=== PATIENT | female | born 1950 | race Caucasian/White ===

== ENCOUNTER 2020-11-03 16:33 | Outpatient (CLI) | payer MEDICARE, OTHER, SELFPAY ==
--- NOTE | ~2020-11-03 | MM_ITS ---
EXAMINATION: MM screening caden BI w egoff HISTORY: Screening mammogram TECHNIQUE: Craniocaudal and mediolateral oblique 3-D tomosynthesis images were obtained and synthetic 2-D images were generated. CAD analysis was submitted and interpreted. COMPARISON: 10/16/2019, 04/02/2018, 03/18/2017 bilateral digital screening mammogram examinations BREAST PARENCHYMAL COMPOSITION: There are scattered areas of fibroglandular density. FINDINGS: There is no evidence of suspicious mass, calcification, or architectural distortion to sugg est malignancy in either breast. There has been no suspicious interval change. IMPRESSION: 1. No mammographic evidence of malignancy. 2. Recommend routine screening mammography in one year. BI-RADS Category 1: Negative Reviewed, dictated and finalized at location B. [employer]
== END 2020-11-03 16:34 | disposition home or self-care (01) ==
PROVIDERS: PCP Family Medicine; Visit Provider Nurse Practitioner
DX: Z12.31 Encounter for screening mammogram for malignant neoplasm of breast (principal)
CPT/HCPCS: 77063; 77067

== ENCOUNTER 2021-03-16 09:18 | Outpatient (CLI) | payer MEDICARE, SELFPAY ==
--- NOTE | ~2021-03-16 | XR_ITS ---
XR knee RT 3V 03/16/2021 09:34 Indication: Right knee pain Procedure: 3 views right knee Comparison: 09/30/2008 Findings: There is moderate-severe tricompartment osteoarthritis of the right knee which has progress ed since prior examination. No acute fracture or traumatic malalignment. No significant joint effusio n. There is chondrocalcinosis. Impression: 1: Progression of moderate-severe tricompartment osteoarthritis of the right knee. 2: Chondrocalcinosis. Reviewed, dictated and finalized at location B. Impression: 1: Progression of moderate-severe tricompartment osteoarthritis of the right kn ee. 2: Chondrocalcinosis.
--- NOTE | ~2021-03-16 | XR_ITS ---
EXAMINATION: XR hip RT min 2V DATE: 03/16/2021 09:34 INDICATION: Right hip pain. TECHNIQUE: 2 views of right hip were obtained. COMPARISON: CT abdomen and pelvis 09/12/2019 FINDINGS: Bone alignment is normal. No fracture. There is moderate osteoarthritis of right hip. Ostei tis pubis is noted. IMPRESSION: 1. Moderate right hip osteoarthritis. Reviewed, dictated and finalized at location A.
== END 2021-03-16 09:19 | disposition home or self-care (01) ==
LOC: ANHIMG 09:21
PROVIDERS: PCP Family Medicine; Visit Provider Physician Assistant
DX: M25.559 Pain in unspecified hip (principal); M25.569 Pain in unspecified knee; M16.11 Unilateral primary osteoarthritis, right hip; M17.11 Unilateral primary osteoarthritis, right knee; M11.261 Other chondrocalcinosis, right knee
CPT/HCPCS: 73502; 73562

== ENCOUNTER 2021-07-07 10:24 | Outpatient (CLI) | payer MEDICARE, SELFPAY | END 2021-07-07 10:25 | disposition home or self-care (01) | LOC: ANHLAB 10:28 | PROVIDERS: PCP Family Medicine; Visit Provider Nurse Practitioner | DX: E55.9 Vitamin D deficiency, unspecified (principal) | CPT/HCPCS: 36415; 82306 ==

== ENCOUNTER 2022-01-03 19:13 | Emergency (ER) | payer MEDICARE, OTHER, SELFPAY ==
--- NOTE | ~2022-01-03 | XR_ITS ---
EXAMINATION: XR lumbar spine min 4V DATE: 01/03/2022 21:51 INDICATION: Right-sided back pain post twisting injury in bed this morning TECHNIQUE: Anteroposterior, lateral, and bilateral oblique views of the lumbar spine, and cone-down l ateral view of the lumbosacral junction were obtained. COMPARISON: CT dated 09/08/2019 FINDINGS: 5 mm anterolisthesis L4 on L5. L1 compression fracture with 20% anterior vertebral body height loss a nd prominent superior endplate Schmorl's node unchanged since prior CT. Remaining vertebral body heig hts are normal. Moderate disc height loss at L5-S1 and T9-T10 through T11-T12 and mild disc height lo ss at T12-L1, L1-L2 and L4-L5. Severe bilateral facet osteoarthritis at L4-L5. No pars interarticular is defects. Additional mild to moderate multilevel lumbar facet osteoarthritis. Mild bilateral sacroi liac osteoarthritis. Cholecystectomy clips in right upper quadrant. Metallic coils in the epigastric region which may be related to prior hernia repair. IMPRESSION: 1. Chronic mild L1 compression fracture. No evident acute osseous abnormality. 2. Moderate lower thoracic and mild to moderate lumbar spondylosis including chronic grade 1 anteroli sthesis L4 on L5. Reviewed, dictated and finalized at location A. TER APPRENTICE IMPRESSION: 1. Chronic mild L1 compression fracture. No evident acute osseous abnormality. 2. Moderate lower thoracic and mild to moderate lumbar spondylosis including ch ronic grade 1 anterolisthesis L4 on L5.
[2022-01-03 19:17] VITALS: BP 149/80; PULSE 90; RESP 16; TEMP 36; O2SAT 99
--- NOTE | 2022-01-03 21:29 | ED.BACK ---
HPI - Back Pain/Injury General Chief Complaint: Back Pain/Injury Stated Complaint: back pain Time Seen by Provider: 01/03/22 21:19 Source: RN notes reviewed History of Present Illness HPI Narrative: Patient presents emergency department from home for back pain. Patient states symptoms began when she got out of bed and twisted this morning pain is located in the right lower back and radiates in the right buttocks and down the right leg she denies any direct trauma or injury. Denies any numbness or tingling in the extremity denies any bowel or bladder incontinence. Denies any fevers or chills chest pain shortness of breath or abdominal pain. States she took Tylenol this morning with last dose at 1130 Related Data Home Medications Medication Instructions Recorded Confirmed raloxifene 60 mg tablet 60 mg PO DAILY 09/26/19 03/16/21 calcium polycarbophil 625 mg tablet 1,250 mg PO DAILY 10/14/19 03/16/21 cholecalciferol (vitamin D3) 25 1,000 unit PO DAILY 10/14/19 03/16/21 mcg (1,000 unit) capsule ferrous sulfate 27 mg iron tablet 65 mg PO DAILY tablet 10/14/19 03/16/21 mecobalamin (vitamin B12) 1,000 1,000 mcg SUBLINGUAL DAILY 10/14/19 03/16/21 mcg disintegrating tablet,sublingual Allergies Allergy/AdvReac Type Severity Reaction Status Date / Time iodine Allergy Unknown Swelling Verified 01/03/22 19:20 nut - unspecified Allergy Unknown Swelling Verified 01/03/22 19:20 shellfish derived Allergy Unknown Swelling Verified 01/03/22 19:20 Review of Systems Review of Systems: Gen.: Denies fevers or chills ENT: Denies congestion Respiratory: Denies shortness of breath or cough CV: Denies chest pain or palpitations GI: Denies abdominal pain nausea, emesis or diarrhea denies incontinence Musculoskeletal: See HPI Neuro: Denies numbness, tingling, weakness or focal weakness Skin: Denies rash Except as documented, all other systems reviewed and negative PMF Past Medical History Medical History (Updated 01/03/22 @ 22:58 by Thomas Rock DO) Depression Esophageal web Gastroesophageal reflux disease Head injury Recurrent major depressive disorder, in partial remission Vitamin B 12 deficiency Surgical History Surgical History H/O colonoscopy History of breast biopsy Hx of tonsillectomy Family History Family History Mother Family history of Alzheimer's disease Other Diabetes mellitus Family history of coronary artery disease Family history of malignant neoplasm Family history of malignant neoplasm of breast in first degree relative Hypertension Social History Social History Smoking status: Never smoker Second hand tobacco smoke exposure: No Alcohol intake: current Exam Narrative: APPEARANCE: No acute distress, nontoxic, resting in bed Eyes: EOMI HEENT: Normocephalic, atraumatic, CV: Regular rate and rhythm without murmur RESPIRATORY: No respiratory distress. Clear to auscultation bilaterally. Abdomen: Soft and nontender, no rebound or guarding MUSCULOSKELETAl: Moves all extremities, no clubbing cyanosis or edema Back: No midline lumbar tenderness to palpation or step-off, tender to palpation over right paravertebral muscles L3-5 , pain increased with forward flexion NEURO: Awake and alert. Following commands, speech normal, no focal deficits, muscle strength 5 out of 5 bilateral lower extremities, bilateral patellar reflex 2+ SKIN:: Warm, dry. Normal Color no rash or lesions Course Course Emergency Course: Patient states pain is improved with medication Discussed with patient results of workup and diagnosis. Discussed need for follow-up with primary care, proper use of medication, and reasons to return to the emergency department. Patient understands and agrees to current treatment plan Vital Signs Vital signs:
[2022-01-03] MEDS: HYDROcodone/acetaminophen (*CRX) 5-325 MG TABLET 1 TAB PO (21:57)
== END 2022-01-03 23:06 | disposition home or self-care (01) ==
PROVIDERS: Emergency Provider Emergency Medicine; PCP Family Medicine
DX: M54.50 Low back pain, unspecified (principal); K21.9 Gastro-esophageal reflux disease without esophagitis; E53.8 Deficiency of other specified B group vitamins; M47.816 Spondylosis without myelopathy or radiculopathy, lumbar region
CPT/HCPCS: 72110; 99283; A9270

== ENCOUNTER → 2022-02-07 09:59 | Outpatient (CLI) | payer MEDICARE, OTHER, SELFPAY ==
--- NOTE | ~2022-02-07 | MM_ITS ---
EXAMINATION: MM screening caden BI w geoff HISTORY: Screening mammogram TECHNIQUE: Craniocaudal and mediolateral oblique 3-D tomosynthesis images were obtained and synthetic 2-D images were generated. CAD analysis was submitted and interpreted. COMPARISON: 11/03/2020, 10/16/2019, 04/02/2018 bilateral screening mammogram examinations BREAST PARENCHYMAL COMPOSITION: There are scattered areas of fibroglandular density. FINDINGS: There is no evidence of suspicious mass, calcification, or architectural distortion to sugg est malignancy in either breast. There has been no suspicious interval change. IMPRESSION: 1. No mammographic evidence of malignancy. 2. Recommend routine screening mammography in one year. BI-RADS Category 1: Negative Reviewed, dictated and finalized at location A.
--- NOTE | ~2022-02-07 | DEXA_ITS ---
Bone Density Report Name: RAMONITA CUNHA Age: 71 Sex: Female Ethnicity: White Date of : 1950 Indication: osteopenia; monitoring treatment; height loss; prior fracture; postmenopausal Referring Provider: CASEY, GEETHA Study: Bone densitometry was performed. Exam Date: February 07, 2022 Accession number: [id number] Bone Density: Region BMD T-score Z-score Classification AP Spine (L1-L4) 0.792 -2.3 -0.2 Osteopenia Femoral Neck (Left) 0.698 -1.4 0.4 Osteopenia Total Hip (Left) 0.780 -1.3 0.2 Osteopenia Femoral Neck (Right) 0.732 -1.1 0.7 Osteopenia Total Hip (Right) 0.748 -1.6 -0.1 Osteopenia Total Hip Mean 0.764 -1.5 0.1 Osteopenia World Health Organization criteria for BMD impression classify patients as: Normal (T-score at or above -1.0), Osteopenia (T-score between -1.0 and -2.5), or Osteoporosis (T-score at or below -2.5). 10-year Fracture Risk: FRAX not reported because: Treated for osteoporosis Previous Exams: Region Exam Age BMD T-score BMD Change BMD Change Date g/cm2 vs Baseline vs Previous AP Spine(L1-L4) 02/07/2022 71 0.792 -2.3 -0.044* -0.063* 03/18/2017 66 0.856 -1.7 0.019 -0.027* 03/10/2015 64 0.883 -1.5 0.046* 0.042* 02/11/2013 62 0.841 -1.9 0.004 0.018 05/25/2009 58 0.823 -2.0 -0.014 -0.014 03/12/2007 56 0.836 -1.9 Total Hip(Left) 02/07/2022 71 0.780 -1.3 -0.018 -0.035* 03/18/2017 66 0.815 -1.0 0.017 -0.016 03/10/2015 64 0.831 -0.9 0.033* 0.025 02/11/2013 62 0.806 -1.1 0.008 0.040* 05/25/2009 58 0.767 -1.4 -0.031* -0.031* 03/12/2007 56 0.798 -1.2 Total Hip(Right) 02/07/2022 71 0.748 -1.6 -0.037* -0.026 03/18/2017 66 0.774 -1.4 -0.011 -0.027 03/10/2015 64 0.801 -1.2 0.016 0.007 02/11/2013 62 0.794 -1.2 0.008 0.034* 05/25/2009 58 0.760 -1.5 -0.026 -0.026 03/12/2007 56 0.785 -1.3 *Denotes significance at 95% confidence level, LSC for AP Spine = 0.022 g/cm2, LSC for Total Hip = 0.027 g/cm2 Clinical Information Provided by Patient: Has had a low trauma fracture Is being treated for osteoporosis Has used the following medications: Evista (i.e. raloxifene), Vitamin D, Calcium Patient maximum height was 63 Menopause Age: 46 No reg
== END ==
PROVIDERS: PCP Family Medicine; Visit Provider Nurse Practitioner
DX: Z12.31 Encounter for screening mammogram for malignant neoplasm of breast (principal); Z78.0 Asymptomatic menopausal state; M85.89 Other specified disorders of bone density and structure, multiple sites
CPT/HCPCS: 77063; 77067; 77080

== ENCOUNTER 2022-08-05 07:09 | Emergency (ER) | payer MEDICARE, OTHER, SELFPAY ==
--- NOTE | ~2022-08-05 | XR_ITS ---
EXAMINATION: XR knee RT min 4V DATE: 08/05/2022 08:14 INDICATION: Right knee pain TECHNIQUE: Four views of the right knee were obtained. COMPARISON: 03/16/2021 FINDINGS: Alignment is normal. No fracture or osteochondral lesion. There is tricompartmental osteoar thritis of the, severe in the medial compartment. Chondrocalcinosis is noted. No joint effusion/synov itis. Soft tissues are unremarkable. IMPRESSION: 1. Osteoarthritis without acute osseous abnormality. Reviewed, dictated and finalized at location B.
--- NOTE | ~2022-08-05 | CT_ITS ---
EXAMINATION: CT brain wo con DATE: 08/05/2022 07:57 INDICATION: Fall with abrasions to the nose TECHNIQUE: Computed tomography (CT) of the head was performed without intravenous contrast. Sagittal and coronal reconstructions were performed. The mA was adjusted according to patient size. Iterative reconstruction technique was employed. The dose-length product was 605.33 mGy-cm. COMPARISON: None FINDINGS: Partially visualized nasal bone fracture. No calvarial fracture. No acute intracranial hemorrhage, ac mary grace infarction or abnormal extra axial fluid collection. There is mild scattered white matter hypoatt enuation consistent with chronic small vessel ischemic disease. Symmetric prominence of the sulci and ventricles consistent with moderate age-appropriate diffuse cerebral volume loss. Ventricles are nor mal and symmetric. No mass/mass effect. Changes of bilateral intraocular lens replacement. The orbits , paranasal sinuses and mastoid air cells are normal. IMPRESSION: 1. No calvarial fracture or acute intracranial process. 2. Age-related changes including moderate diffuse volume loss and mild scattered white matter hypoatt enuation consistent with chronic small vessel ischemic disease. 3. Partially visualized nasal bone fracture. See separate maxillofacial CT for further detail. Reviewed, dictated and finalized at location A. IMPRESSION: 1. No calvarial fracture or acute intracranial process. 2. Age-related changes including moderate diffuse volume loss and mild scattere d white matter hypoattenuation consistent with chronic small vessel ischemic di sease. 3. Partially visualized nasal bone fracture. See separate maxillofacial CT for further detail.
--- NOTE | ~2022-08-05 | CT_ITS ---
EXAMINATION: 1. CT facial & cervical spine wo DATE: 08/05/2022 07:57 INDICATION: Head and facial injury. TECHNIQUE: 1. Computed tomography (CT) of the maxillofacial region and of the cervical spine were performed with out intravenous contrast. Sagittal and coronal reconstructions of both regions were obtained. The dos e-length product was mGy-cm. COMPARISON: None. FINDINGS: Maxillofacial CT: Comminuted bilateral nasal bone fractures with slight posterior compression and leftward angulation o f the fragments. There is also a nondisplaced fracture of the anterior third of the bony nasal septum . Small amount of soft tissue gas at the nose and septum with a small amount of intraosseous gas with in the septum. No other maxillofacial fractures identified. Specifically the chairez of the orbits and paranasal sinuses, the zygomatic arches, pterygoid plates and mandible are all intact. Bilateral temp oromandibular joints are normal alignment with mild osteoarthritis on the right, moderate on the left . Changes of bilateral intraocular lens replacement. Paranasal sinuses, mastoid air cells and middle ear cavities are all clear. Cervical spine CT: Straightening of the normal cervical lordosis. 1-2 mm anterolisthesis C3 on C4. Vertebral body height s are normal. No fracture. Moderate to severe disc height loss at C4-C5 through C6-C7 and at T2-T3. M ild disc height loss at the remaining levels from C3-C4 through T1-T2. Bilateral multilevel moderate to severe uncovertebral osteoarthritis and mild to moderate cervical facet osteoarthritis contributin g to moderate neural foraminal stenosis bilaterally at 4 C5 and C5-C6 and on the right at C6-C7. Mild stenosis at multiple additional neural foramina. Disc bulges at C3-C4 and posterior disc osteophyte complexes at C4-C5 and C6-C7 resulting in mild central canal stenosis. Mild to moderate central canal stenosis associated with a posterior disc osteophyte complex at C5-C6. Cervical soft tissues are unr emarkable. Visualized airway and apices of lungs are clear. IMPRESSION: 1. Mildly displaced and angulated comminuted fractures of the bilateral nasal bones and nondisplaced fracture of the nasal septum with small amounts of associated intraosseous gas at the septum. 2. Moderate to severe cervical spondylosis with no acute osseous abnormality. Reviewed, dictated and finalized at location A. IMPRESSION: 1. Mildly displaced and angulated comminuted fractures of the bilateral nasal b ones and nondisplaced fracture of the nasal septum with small amounts of associ ated intraosseous gas at the septum. 2. Moderate to severe cervical spondylosis with no acute osseous abnormality.
--- NOTE | ~2022-08-05 | XR_ITS ---
EXAMINATION: XR wrist RT min 3V INDICATION: Right wrist pain TECHNIQUE: Four views of the right wrist are obtained. COMPARISON: None available FINDINGS: Bone alignment is normal. There is no fracture. There is moderate osteoarthritis of the tri scaphe and first carpometacarpal joints. There appears to be an old ulnar styloid avulsion. IMPRESSION: 1. No acute osseous abnormality. Reviewed, dictated and finalized at location B.
--- NOTE | ~2022-08-05 | XR_ITS ---
EXAMINATION: XR hand LT min 3V INDICATION: Left hand pain TECHNIQUE: Three views of the left hand are obtained. COMPARISON: None available FINDINGS: Bone alignment is normal. There is no fracture. There is moderate osteoarthritis of multipl e interphalangeal joints and at the first carpometacarpal joint. IMPRESSION: 1. No acute osseous abnormality. Reviewed, dictated and finalized at location B.
--- NOTE | ~2022-08-05 | XR_ITS ---
EXAMINATION: XR hand RT min 3V INDICATION: Right hand pain TECHNIQUE: Three views of the right hand are obtained. COMPARISON: None available FINDINGS: Bone alignment is normal. There is no fracture. There is moderate osteoarthritis of multipl e interphalangeal joints as well as at the triscaphe and first carpometacarpal joints. IMPRESSION: 1. No acute osseous abnormality. Reviewed, dictated and finalized at location B.
[2022-08-05 07:30] VITALS: BP 144/86; PULSE 97; RESP 16; O2SAT 96; O2SAT 99
--- NOTE | 2022-08-05 08:10 | ED.FALL ---
HPI - Fall General Chief Complaint: Fall Stated Complaint: fall Time Seen by Provider: 08/05/22 07:22 Source: patient and RN notes reviewed Mode of arrival: ambulatory Limitations: no limitations History of Present Illness HPI Narrative: This is a 72 year old female who presents for evaluation of injuries s/p fall. She was rushing to check on her mother who had just fallen, and she tripped of curb. She fell forward hitting her face on the ground. She denies LOC, but she had epistaxis and abrasions to her nose. She also reports right wrist pain, bilateral hand soreness and she reports feeling like her hands are asleep. She has chronic neck pain but she does not think her pain is worse than usual. She also reports right knee pain and abrasion from her fall. She does not take blood thinners. She is unsure of her last tetanus vaccination. MD complaint: fall Onset (ago): minute(s) Fall from: standing Place fall occurred: street Loss of consciousness: none Prolonged down time: no Symptoms prior to fall: none Context: tripped/slipped Location of injury: face Related Data Home Medications Medication Instructions Recorded Confirmed cholecalciferol (vitamin D3) 25 1,000 unit PO DAILY 10/14/19 03/04/22 mcg (1,000 unit) capsule ferrous sulfate 27 mg iron tablet 65 mg PO DAILY 10/14/19 03/04/22 calcium 100 mg capsule 50 mg PO DAILY 03/04/22 03/04/22 diclofenac sodium 3 % topical gel 1 applic topical BID PRN Rash 03/04/22 03/04/22 esomeprazole magnesium 40 mg 40 mg PO DAILY 03/04/22 03/04/22 capsule,delayed release vitamin B12 2,500 mcg-folic acid 1 tablet PO DAILY 03/04/22 03/04/22 400 mcg disintegrating tablet Allergies Allergy/AdvReac Type Severity Reaction Status Date / Time iodine Allergy Unknown Swelling Verified 03/04/22 10:45 nut - unspecified Allergy Unknown Swelling Verified 03/04/22 10:45 shellfish derived Allergy Unknown Swelling Verified 03/04/22 10:45 Review of Systems Review of Systems: All systems reviewed & are unremarkable except as noted in HPI and below Constitutional: Constitutional: Denies chills and Denies fatigue Eyes: Eyes: Denies change in vision ENT: Denies epistaxis and Denies nasal congestion Cardiovascular: Cardiovascular: Denies chest pain Respiratory: Respiratory: Denies chest congestion and Denies cough Musculoskeletal: Musculoskeletal: Reports myalgias and Reports arthralgias [facility] Past Medical History Medical History Depression Esophageal web Gastroesophageal reflux disease Head injury Paraspinal muscle spasm Recurrent major depressive disorder, in partial remission Vitamin B 12 deficiency Surgical History Surgical History H/O colonoscopy History of breast biopsy Hx of tonsillectomy Family History Family History Mother Family history of Alzheimer's disease Other Diabetes mellitus Family history of coronary artery disease Family history of malignant neoplasm Family history of malignant neoplasm of breast in first degree relative Hypertension Social History Social History Smoking status: Never smoker Second hand tobacco smoke exposure: No Alcohol intake: current Spiritual care concerns: No Exam Const: General: no acute distress and alert Nutritional Appearance: well nourished Orientation/consciousness: patient oriented x3 HENMT: Ears: external ears normal General nose exam: Epistaxis present on the left (but controlled now) Face and sinus: sinuses nontender Mouth: Yes Normal oral and palatal mucosa present, Yes lip normal and Yes moist mucous membranes Teeth and gingiva: dentition normal Other: abrasion to nose Eyes: Pupils: Equal, round and reactive pupils present EOM: EOMs intact bilaterally Neck: Neck:
[2022-08-05 08:21] VITALS: O2SAT 95
[2022-08-05] MEDS: ACETAMINOPHEN 500 MG TABLET 1000 MG PO (08:22)
[2022-08-05] MEDS: TETANUS,DIPHTHERIA,AC PERTUSSIS ADULT (0.5 ML) BOOSTRIX IM (08:22)
[2022-08-05 09:10] VITALS: BP 133/99; PULSE 101; RESP 16; O2SAT 96
== END 2022-08-05 09:10 ==
PROVIDERS: Emergency Provider General Practice; PCP Family Medicine
DX: S02.2XXA Fracture of nasal bones, initial encounter for closed fracture (principal); Z23 Encounter for immunization; K21.9 Gastro-esophageal reflux disease without esophagitis; E53.8 Deficiency of other specified B group vitamins; M17.11 Unilateral primary osteoarthritis, right knee; M19.031 Primary osteoarthritis, right wrist; M19.042 Primary osteoarthritis, left hand; M19.041 Primary osteoarthritis, right hand; M18.9 Osteoarthritis of first carpometacarpal joint, unspecified; W10.1XXA Fall (on)(from) sidewalk curb, initial encounter
CPT/HCPCS: 70450; 70486; 72125; 73110; 73130; 73564; 90471; 90715; 99284; A9270

== ENCOUNTER → 2023-08-19 09:02 | Outpatient (CLI) | payer MEDICARE, OTHER, SELFPAY ==
--- NOTE | ~2023-08-19 | MM_ITS ---
EXAMINATION: MM screening [facility] BI w geoff HISTORY: Screening mammogram TECHNIQUE: Craniocaudal and mediolateral oblique 3-D tomosynthesis images were obtained and synthetic 2-D images were generated. CAD analysis was submitted and interpreted. COMPARISON: 02/07/2022, 11/03/2020 BREAST PARENCHYMAL COMPOSITION: There are scattered areas of fibroglandular density. FINDINGS: No suspicious mass, calcification, or architectural distortion are identified in either tatiana ast to suggest malignancy. There has been no suspicious interval change. IMPRESSION: 1. No mammographic evidence of malignancy. 2. Recommend routine screening mammography in one year. BI-RADS Category 1: Negative Reviewed, dictated and finalized at location A.
== END ==
PROVIDERS: PCP Obstetrics & Gynecology Gynecology; Visit Provider Obstetrics & Gynecology Gynecology
DX: Z12.31 Encounter for screening mammogram for malignant neoplasm of breast (principal)
CPT/HCPCS: 77063; 77067

== ENCOUNTER 2024-02-15 10:59 | Outpatient (CLI) | payer MEDICARE, OTHER, SELFPAY ==
[2024-02-15 11:31] LABS: Hematocrit 43.3 % (37.0-47.0); Hemoglobin 13.9 g/dL (12.0-15.0); Mean Corpuscular HGB Conc 32.1 g/dl (32-36); Mean Corpuscular Hemoglobin 34.4 pg (26-34); Mean Corpuscular Volume 107.2 fl (80-100); Platelet Count Result 251 k/mm3 (150-375); Red Blood Count 4.04 M/mm3 (4.2-5.4); Red Cell Distribution Width 13.9 % (11.5-14.5); White Blood Count 6.3 K/mm3 (4.5-10.0)
[2024-02-15 11:43] LABS: Alanine Aminotransferase 25 U/L (6-35); Albumin Level 4.5 g/dL (3.5-5.1); Alkaline Phosphatase 80 U/L (38-126); Anion Gap 7 mmol/L (4-12); Aspartate Amino Transferase 34 U/L (14-36); Bilirubin,Total 0.6 mg/dL (0.2-1.3); Blood Urea Nitrogen 14 mg/dL (7-17); Calcium 9.6 mg/dL (8.4-10.2); Carbon Dioxide 26 mmol/L (22-30); Chloride 107 mmol/L (98-107); Cholesterol 251 mg/dL (0-200); Estimated Glomerular Filt Rate > 60; Glucose 103 mg/dL (65-110); HDL Direct 62 mg/dL; Potassium 4.3 mmol/L (3.4-5.0); Sodium 140 mmol/L (137-145); Triglycerides 160 mg/dL (<150)
[2024-02-15 11:54] LABS: LDL Cholesterol Direct 141 mg/dL
[2024-02-15 12:13] LABS: Free T4 Free Thyroxine 0.72 ng/mL (0.78-2.19)
== END 2024-02-15 11:00 | disposition home or self-care (01) ==
LOC: ANHLAB 11:02
PROVIDERS: PCP Family Medicine; Visit Provider Physician Assistant
DX: R53.83 Other fatigue (principal); Z13.1 Encounter for screening for diabetes mellitus; E78.5 Hyperlipidemia, unspecified; D64.9 Anemia, unspecified
CPT/HCPCS: 36415; 80053; 80061; 84439; 84443; 85027

== ENCOUNTER 2024-02-15 11:24 | Outpatient (CLI) | payer MEDICARE, OTHER, SELFPAY ==
--- NOTE | ~2024-02-15 | XR_ITS ---
XR knee RT min 4V 02/15/2024 12:43 Indication: Right knee pain Procedure: 4 views right knee Comparison: Comparison to multiple prior studies sequentially, with oldest reviewed study dated 08/21. Findings: There is moderate-severe osteoarthritis of the right knee. There is chondrocalcinosis. No a cute fracture or traumatic malalignment. No significant joint effusion. Impression: 1: Moderate-severe osteoarthritis of the right knee. Reviewed, dictated and finalized at location L. Impression: 1: Moderate-severe osteoarthritis of the right knee.
--- NOTE | ~2024-02-15 | XR_ITS ---
XR knee LT min 4V 02/15/2024 12:43 Indication: Left knee pain Procedure: 4 views left knee Comparison: No prior studies for comparison. Findings: There is moderate osteoarthritis of the left knee. There is chondrocalcinosis. There are lo ose bodies superior to the patella. No significant joint effusion. No acute fracture or traumatic mal alignment. Impression: 1: Moderate osteoarthritis of the left knee with chondrocalcinosis. Reviewed, dictated and finalized at location L. Impression: 1: Moderate osteoarthritis of the left knee with chondrocalcinosis.
== END 2024-02-15 11:25 ==
PROVIDERS: PCP Physician Assistant; Visit Provider Physician Assistant
DX: M17.0 Bilateral primary osteoarthritis of knee (principal); M11.262 Other chondrocalcinosis, left knee; M25.569 Pain in unspecified knee
CPT/HCPCS: 73564

== ENCOUNTER 2024-08-05 07:59 | Outpatient (CLI) | payer MEDICARE, OTHER, SELFPAY ==
[2024-08-05 08:14] LABS: Basophils Absolute Auto 0.1 K/mm3 (0.0-0.1); Eosinophils Absolute Auto 0.4 K/mm3 (0-0.3); Eosinophils Percent Auto 5.6 % (0-4.4); Hematocrit 42.5 % (37.0-47.0); Hemoglobin 14.3 g/dL (12.0-15.0); Immature Granulocyte Absolute 0.03 K/mm3 (0.00-0.031); Immature Granulocyte Percent A 0.4 % (0-0.5); Lymphocytes Absolute Auto 1.23 K/mm3 (0.9-3.2); Lymphocytes Percent Auto 16.9 % (18.3-44.2); Mean Corpuscular HGB Conc 33.6 g/dl (32-36); Mean Corpuscular Hemoglobin 35.1 pg (26-34); Mean Corpuscular Volume 104.4 fl (80-100); Mean Platelet Volume 9.8 fl (7.4-10.4); Monocytes Absolute Auto 0.5 K/mm3 (0.1-0.6); Monocytes Percent Auto 7.3 % (2.6-8.5); Neutrophils Percent Auto 68.8 % (45.5-73.1); Platelet Count Result 318 k/mm3 (150-375); Red Blood Count 4.07 M/mm3 (4.2-5.4); Red Cell Distribution Width 13.1 % (11.5-14.5); White Blood Count 7.3 K/mm3 (4.5-10.0)
[2024-08-05 08:26] LABS: Alanine Aminotransferase 14 U/L (6-35); Albumin Level 4.4 g/dL (3.5-5.1); Alkaline Phosphatase 71 U/L (38-126); Anion Gap 8 mmol/L (4-12); Aspartate Amino Transferase 23 U/L (14-36); Bilirubin,Total 0.7 mg/dL (0.2-1.3); Blood Urea Nitrogen 9 mg/dL (7-17); Calcium 9.6 mg/dL (8.4-10.2); Carbon Dioxide 29 mmol/L (22-30); Chloride 103 mmol/L (98-107); Cholesterol 254 mg/dL (0-200); Estimated Glomerular Filt Rate > 60; Glucose 105 mg/dL (65-110); HDL Direct 65 mg/dL; Potassium 3.8 mmol/L (3.4-5.0); Sodium 140 mmol/L (137-145); Triglycerides 268 mg/dL (<150)
[2024-08-05 08:38] LABS: LDL Cholesterol Direct 125 mg/dL
[2024-08-05 09:02] LABS: Free T4 Free Thyroxine 0.94 ng/mL (0.78-2.19)
== END 2024-08-05 08:00 | disposition home or self-care (01) ==
PROVIDERS: PCP Family Medicine; Visit Provider Student in an Organized Health Care Education/Training Program
DX: R53.83 Other fatigue (principal); E78.5 Hyperlipidemia, unspecified; E53.8 Deficiency of other specified B group vitamins; D50.9 Iron deficiency anemia, unspecified
CPT/HCPCS: 36415; 80053; 80061; 84439; 84443; 85025

== ENCOUNTER 2024-08-24 08:35 | Outpatient (CLI) | payer MEDICARE, OTHER, SELFPAY ==
--- NOTE | ~2024-08-24 | MM_ITS ---
EXAMINATION: MM screening [facility] BI w geoff HISTORY: Screening TECHNIQUE: Craniocaudal and mediolateral oblique 3-D tomosynthesis images were obtained and synthetic 2-D images were generated. CAD analysis was submitted and interpreted. COMPARISON: Comparison to multiple prior studies sequentially, with oldest reviewed study dated 03/18. BREAST PARENCHYMAL COMPOSITION: Not dense: There are scattered areas of fibroglandular density. FINDINGS: There are possible developing asymmetries in the left breast anteriorly. The right breast i s stable without evidence for malignancy. IMPRESSION: 1. Possible developing asymmetries of the left breast. 2. Additional mammographic views and possible breast ultrasound are recommended. BI-RADS Category 0: Incomplete: Needs additional imaging evaluation. Reviewed, dictated and finalized at location B. IMPRESSION: 1. Possible developing asymmetries of the left breast. 2. Additional mammographic views and possible breast ultrasound are recommended . BI-RADS Category 0: Incomplete: Needs additional imaging evaluation.
== END 2024-08-24 08:36 | disposition home or self-care (01) ==
LOC: MICIMG 08:37
PROVIDERS: PCP Nurse Practitioner; Visit Provider Nurse Practitioner
DX: Z12.31 Encounter for screening mammogram for malignant neoplasm of breast (principal)
CPT/HCPCS: 77063; 77067

== ENCOUNTER 2024-09-17 07:39 | Outpatient (CLI) | payer MEDICARE, OTHER, SELFPAY ==
--- NOTE | ~2024-09-17 | MMUS_ITS ---
EXAMINATION: MM diagnostic caden LT w geoff, US breast LT limited HISTORY: Left breast asymmetric densities TECHNIQUE: Additional 3-D tomosynthesis images of the left breast were performed and synthetic 2-D im ages were generated. CAD analysis was submitted and interpreted. High resolution limited left breast ultrasound was performed. COMPARISON: 08/24/2024, 08/19/2023, 02/07/2022 BREAST PARENCHYMAL COMPOSITION:Not Dense. There are scattered areas of fibroglandular density. FINDINGS: MAMMOGRAPHIC FINDINGS: There is a low-density reniform mass at the lower, inner left breast measuring approximately 7 to 8 m m in diameter. The asymmetries in the left subareolar region are relatively stable as compared to danny or mammograms. ULTRASOUND: At the 8:00 left subareolar region, there is a 6 x 5 x 7 mm wider than tall solid reniform mass. No p osterior shadowing. IMPRESSION: No mammographic evidence for malignancy. Findings most consistent with a left subareolar benign intr amammary lymph node. BI-RADS Category 2: Benign finding(s). Reviewed, dictated and finalized at location . IMPRESSION: No mammographic evidence for malignancy. Findings most consistent with a left subareolar benign intramammary lymph node. BI-RADS Category 2: Benign finding(s).
== END 2024-09-17 07:40 | disposition home or self-care (01) ==
LOC: MICIMG 07:39
PROVIDERS: PCP Family Medicine; Visit Provider Obstetrics & Gynecology Gynecology
DX: R92.8 Other abnormal and inconclusive findings on diagnostic imaging of breast (principal)
CPT/HCPCS: 76642; 77061; 77065; G0279

== ENCOUNTER 2025-02-18 11:44 | Outpatient (CLI) | payer MEDICARE, OTHER, SELFPAY ==
--- NOTE | ~2025-02-18 | XR_ITS ---
Clinical Indication: Chest pain PA and lateral views of the chest: Comparison: 03/27/2017 Findings: The lungs are clear, without evidence of focal consolidation or pleural effusion. Cardiome diastinal silhouette is within normal limits. Bones are intact. Moderate hiatal hernia present. Impression: Clear lungs. Moderate hiatal hernia. Reviewed, dictated and finalized at location . Impression: Clear lungs. Moderate hiatal hernia.
[2025-02-18 12:31] LABS: Hematocrit 40.3 % (37.0-47.0); Hemoglobin 13.4 g/dL (12.0-15.0); Mean Corpuscular HGB Conc 33.3 g/dl (32-36); Mean Corpuscular Hemoglobin 33.3 pg (26-34); Mean Corpuscular Volume 100.2 fl (80-100); Platelet Count Result 246 k/mm3 (150-375); Red Blood Count 4.02 M/mm3 (4.2-5.4); Red Cell Distribution Width 14.6 % (11.5-14.5); White Blood Count 7.5 K/mm3 (4.5-10.0)
--- OUTSIDE RECORDS SUMMARY | 2025-02-18 13:03 | XMS_ITS | Referral Summary ---
Author Organization [facility] Address [address] [place] [id number] Care Team Providers Care Unit Leader Name Role Phone Marielle James MD Primary Care Provider [phone] Allergies Active Allergy Reactions Criticality Noted Date Comments Iodinated Contrast Media Anaphylaxis High 01/06/2020 Iodine Strong (Lugols) Anaphylaxis High 01/06/2020 Medications iron bisgly,ps-FA-B-C#12- succ 65 mg-65 mg -1,000 mcg (24) tablet Take 1 tablet by mouth every morning Active cyanocobalamin (Vitamin B-12) 1,000 mcg sublingual tablet Take 1,000 mcg by mouth every morning Active cholecalciferol (VITAMIN D-3) 1,000 unit Take 1,000 Units by mouth every morning Active calcium carbonate (CALCIUM 500 ORAL) Take 1 tablet by mouth every morning Active esomeprazole DR (NexIUM) 40 mg capsuleIndications:S ymptomatic Gastroesophageal Reflux Disease,recurrent hiatal hernia Take 1 capsule (40 mg total) by mouth 2 (two) times a day 60 capsule 11 2 Active Active Problems Problem Noted Date Diagnosed Date 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 Overview (01/03/2020): Added automatically from request for surgery [id number] Immunizations Immunization Administration Dates Next Due Influenza, Unspecified 11/20/2019 Social History Tobacco Use Types Packs/Day Years Used Date Smoking Tobacco: Never Smokeless Tobacco: Never Alcohol Use Standard Drinks/Week Comments Yes 0 (1 standard drink = 0.6 oz pur e alcohol) occ Comments No Sex and Gender Information Value Date Recorded Sex Assigned at Not on file 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 Gender Identity Not on file Sexual Orientation Not on file Last Filed Vital Signs Vital Sign Reading Time Taken Comments Blood Pressure 130/87 03/01/2022 8:06 AM CDT Pulse 77 03/01/2022 8:06 AM CDT Temperature 36 C (96.8 F) 02/23/2021 10:50 AM CDT Respiratory Rate 16 03/01/2022 8:06 AM CDT Oxygen Saturation 97% 03/01/2022 8:06 AM CDT Inhaled Oxygen Concentration - - Weight 75.5 kg (166 lb 6.4 oz) 03/01/2022 8:06 A M CDT Height 157.5 cm (5' 2 ) 03/01/2022 8:06 AM CDT Body Mass Index 30.43 03/01/2022 8:06 AM CDT Plan of Treatment Not on file Medical Devices Implanted Type Area Bit Sharpener Device Identifier Shelf Expiration Date Model / Serial / Lot Wl [employer] [place] [employer] [id number] [place] Bio-A 10x7cm Reinforcement Tissue Mesh Surgical Synthetic - [id number] - [id number] Implanted:Qty: 1 on 02/07/2020 by Sophia Conteh MD at [facility] N/A: Esophagus Wl [employer] [id number] 09/08/2022 [id number] / [id number] / Insurance MEDICARE [facility] Address: [address] [address] [facility] CO HU[employer] CHOICE MEDICARE PPO CIGNA OPEN ACCESS Advance Directives For more information, please contact: [phone] * Full Code (Latest Code Status on File) Date Activated Date Inactivated Comments 02/07/2020 8:10 PM 02/09/2020 4:17 PM Care Teams Unit Leader Relationship Specialty Start Date End Date Marielle James MD PCP - General Family Medicine 11/08/19
--- OUTSIDE RECORDS SUMMARY | 2025-02-18 13:03 | XMS_ITS | Clinical Summary ---
Author Organization [facility] Address [address] [place] [id number] Care Team Providers Care Hogshead Roller Name Role Phone Marielle James MD Primary Care Provider [phone] Allergies Active Allergy Reactions Criticality Noted Date [...] (01/03/2020): Added automatically from request for surgery [id number] Immunizations Immunization Administration Dates Next Due Influenza, Unspecified 11/20/2019 Surgical History Surgery Date Site/Laterality Comments TONSILLECTOMY/ADENOIDECTOMY 11/20/1957 - 11/19/1958 CHOLECYSTECTOMY 11/20/2006 - 11/19/2007 ABDOMINAL SURGERY BREAST EXCISIONAL BIOPSY 11/20/1997 - 11/19/1998 Fibroadenoma ESOPHAGOGASTRODUODENOSCOPY Medical History Medical History Date Comments GERD (gastroesophageal reflux disease) Hiatal hernia Delayed emergence from gener al anesthesia Required addtional stimulus after colonscopy, rousable and and did not require furthur interventions Family History Medical History Relation Name Comments Anesthesia problems Father Heart attack Father No Known Problems Mother Relation Name Status Comments Father Delayed emergen ce Mother Social History Tobacco Use Types Packs/Day Years Used Date Smoking Tobacco: Never Smokeless Tobacco: Never Alcohol Use Standard Drinks/Week Comments Yes 0 (1 standard drink = 0.6 oz pur e alcohol) occ Comments No Sex and Gender Information Value Date Recorded Sex Assigned at Not on file 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 Gender Identity Not on file Sexual Orientation Not on file Obstetrics History Last Filed Vital Signs Vital Sign Reading [...] 03/01/2022 8:06 AM CDT Plan of Treatment Health Maintenance Due Date Last Done Comments Breast Cancer Screening-Mammogram 1950 Colon Cancer Screening-Colonoscopy 1950 Depression Screening 1950 Hepatitis C Screening 1950 Osteoporosis Screening-Bone Density Scan 1950 Hepatitis B Screening 1970 Pneumococcal vaccine 65+ (1 of 1 - PCV) 2002 Zoster Vaccine (1 of 2) 2002 Well Visit 65+ 2017 Fall Risk Assessment 02/08/2021 02/09/2020 Influenza Vaccine (#1) 2024 0, 11/06/2019, 08/04/2016, Additional history exists DTaP/Tdap/Td Vaccine (2 - Td or Tdap) 08/01/2026 08/01/2016 Medical Devices Implanted Type Area Deburrer Machine Device Identifier Shelf Expiration Date Model / Serial / Lot Wl [employer] [id number] [place] Bio-A 10x7cm Reinforcement Tissue Mesh Surgical Synthetic - [id number] - [id number] Implanted:Qty: 1 on 02/07/2020 by Sophia Conteh MD at [facility] Medicine N/A: Esophagus [employer] [id number] 09/08/2022 [id number] / [id number] / Insurance MEDICARE [facility] CO HUMANA CHOICE MEDICARE PPO OPEN ACCESS Advance Directives For more information, please contact: [phone] * Full Code (Latest Code Status on File) Date Activated Date Inactivated Comments 02/07/2020 8:10 PM 02/09/2020 4:17 PM Care Teams Hogshead Roller Relationship Specialty Start Date End Date Marielle James MD PCP - General Family Medicine 11/08/19
--- OUTSIDE RECORDS SUMMARY | 2025-02-18 13:03 | XMS_ITS | Continuity of Care Document ---
Author Organization [facility] Address [address] [place] [address] Phone Care Team Providers Care Knowledge Analyst Name Role Phone Estela Gregory Unavailable Unavailable [...] Diagnoses Date Provider Providers Copied on Encounter [facility], [address] [place] [address] [address], [place], [place], [id number], tel:[phone] [facility] [place][note 2] No Information March-1 3-201 0 Bri Gómez [address] [facility] , [address], [place], [place], [facility], . tel:[phone] [facility], [address] [place] [address] [address], [place], [place], [id number], [place] tel:[phone] [facility] [place][note 2] No Information March-0 8-200 8 Bri Gómez [address] [facility] , [address], [place], [address], [place]. tel:[phone] [facility], [address] [place] [address] [address], [place], [place], [id number], tel:[phone] [facility] [place][note 2] No Information 200 [address] [employer] . [address], [address], [place], [place], [id number], [place]. tel:[phone] Referring Provider: Cesar Loza, [address] [place] [address] [address], [place], [address]. [phone] sulting Provider: Gurinder Schwab, [address] [facility], [place], [address]. tel:[phone] [facility], [address], [place], [place], [id number], [place] tel:[phone] [facility] [place][note 2] No Information [address] Guerrero. [facility] [facility] , [address], [place], [address], [place]. tel:[phone] Family History Family Member Type Diagnosis Age At Onset No Information Payers Payer name Insurance type Covered libertarian ID Authoriza tion(s) No Information Social History [...]
[2025-02-18 17:27] LABS: Alanine Aminotransferase 27 U/L (6-35); Albumin Level 4.6 g/dL (3.5-5.1); Alkaline Phosphatase 73 U/L (38-126); Anion Gap 14 mmol/L (4-12); Aspartate Amino Transferase 37 U/L (14-36); Bilirubin,Total 0.6 mg/dL (0.2-1.3); Blood Urea Nitrogen 13 mg/dL (7-17); Calcium 9.7 mg/dL (8.4-10.2); Carbon Dioxide 24 mmol/L (22-30); Chloride 102 mmol/L (98-107); Cholesterol 186 mg/dL (0-200); Estimated Glomerular Filt Rate > 60; Glucose 95 mg/dL (65-110); HDL Direct 72 mg/dL; Potassium 4.3 mmol/L (3.4-5.0); Sodium 140 mmol/L (137-145); Triglycerides 156 mg/dL (<150)
[2025-02-18 17:38] LABS: LDL Cholesterol Direct 70 mg/dL
== END 2025-02-18 11:45 | disposition home or self-care (01) ==
PROVIDERS: PCP Family Medicine; Visit Provider Family Medicine
DX: R07.9 Chest pain, unspecified (principal); K44.9 Diaphragmatic hernia without obstruction or gangrene; E78.2 Mixed hyperlipidemia; R53.83 Other fatigue; E55.9 Vitamin D deficiency, unspecified
CPT/HCPCS: 36415; 71046; 80053; 80061; 82306; 84443; 85027

== ENCOUNTER 2025-08-22 11:56 | Outpatient (CLI) | payer MEDICARE, OTHER, SELFPAY ==
--- OUTSIDE RECORDS SUMMARY | 2010-04-01 10:30 | XMS_ITS | Continuity of Care Document ---
Author Organization [facility] Address [address] [place] [address] Phone Care Team Providers Care Hammerer Name Role Phone Estela Gregory Unavailable Unavailable [...] Diagnoses Date Provider Providers Copied on Encounter [facility], [address] [place] [address] [address], [place], [place], [id number], tel:[phone] SEC [facility] No Information March-1 3-201 0 Bri Gómez [address] [facility] , [address], [place], [place], [facility], . tel:[phone] [facility], [address] [place] [address] [address], [place], [place], [id number], [place] tel:[phone] SEC [facility] No Information March-0 8-200 8 Bri Gómez [address] [facility] , [address], [place], [address], [place]. tel:[phone] [facility], [address] [place] [address] [address], [place], [place], [id number], tel:[phone] SEC [facility] No Information [address] [facility] [employer] . [address], [address], [place], [place], [address], [place]. tel:[phone] Referring Provider: Cesar Loza, [address] [place] [address] [address], [place], [address]. [phone] sulting Provider: Gurinder Schwab, [address] [facility], [place], [address]. tel:[phone] [facility], [address] [facility] [address], [place], [place], [id number], [place] tel:[phone] SEC [facility] No Information [address]. [facility] , [address], [place], [address], [place]. tel:[phone] Family History Family Member Type Diagnosis Age [...]
--- OUTSIDE RECORDS SUMMARY | 2025-08-22 11:59 | XMS_ITS | Clinical Summary ---
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 Gender Identity Not on file Sexual Orientation [...] A M CDT Height 157.5 cm (5' 2) 03/01/2022 8:06 AM CDT Body Mass Index 30.43 03/01/2022 8:06 AM CDT Plan of Treatment Not on file Medical Devices Implanted Type Area Rolled Materials Worker Device Identifier Shelf Expiration Date Model / Serial / Lot Wl [employer] [id number] [place] Bio-A 10x7cm Reinforcement Tissue Mesh Surgical Synthetic - [id number] - [id number] Implanted:Qty: 1 on 02/07/2020 by Sophia Conteh MD at [facility] N/A: Esophagus [employer] [id number] 09/08/2022 [id number] / [id number] / Insurance MEDICARE [facility] INS [facility] HUMANA CHOICE MEDICARE PPO CIGNA OPEN ACCESS Advance Directives For more information, please contact: [phone] * Full Code (Latest Code Status on File) Date Activated Date Inactivated Comments 02/07/2020 8:10 PM 02/09/2020 4:17 PM Care Teams Balloon Pilot Relationship Specialty Start Date End Date Marielle James MD PCP - General Family Medicine 11/08/19
[2025-08-22 12:20] LABS: Hematocrit 40.0 % (37.0-47.0); Hemoglobin 13.2 g/dL (12.0-15.0); Immature Granulocyte Percent A 0.4 % (0-0.5); Lymphocytes Absolute Auto 1.36 K/mm3 (0.9-3.2); Mean Corpuscular HGB Conc 33.0 g/dl (32-36); Mean Corpuscular Hemoglobin 32.6 pg (26-34); Mean Corpuscular Volume 98.8 fl (80-100); Nucleated Red Blood Cells Absolute Auto 0.000 K/mm3 (0.0-0.012); Nucleated Red Blood Cells Perc 0.0 % (0.0-0.2); Platelet Count Result 285 k/mm3 (150-375); Red Blood Count 4.05 M/mm3 (4.2-5.4); White Blood Count 7.2 K/mm3 (4.5-10.0)
[2025-08-22 12:32] LABS: Alanine Aminotransferase 28 U/L (6-35); Albumin Level 4.6 g/dL (3.5-5.1); Alkaline Phosphatase 76 U/L (38-126); Anion Gap 9 mmol/L (4-12); Aspartate Amino Transferase 41 U/L (14-36); Bilirubin,Total 0.4 mg/dL (0.2-1.3); Blood Urea Nitrogen 12 mg/dL (7-17); Calcium 9.6 mg/dL (8.4-10.2); Carbon Dioxide 24 mmol/L (22-30); Chloride 105 mmol/L (98-107); Cholesterol 191 mg/dL (0-200); Estimated Glomerular Filt Rate > 60; Glucose 99 mg/dL (65-110); HDL Direct 69 mg/dL; Potassium 4.4 mmol/L (3.4-5.0); Sodium 138 mmol/L (137-145); Total Protein 8.0 g/dL (6.3-8.2); Triglycerides 216 mg/dL (<150)
== END 2025-08-22 11:57 | disposition home or self-care (01) ==
LOC: ANHLAB 11:58
DX: E78.2 Mixed hyperlipidemia (principal); R53.83 Other fatigue
CPT/HCPCS: 36415; 80053; 80061; 85025

== ENCOUNTER 2025-09-04 15:03 | Outpatient (CLI) | payer MEDICARE, OTHER, SELFPAY ==
--- OUTSIDE RECORDS SUMMARY | 2010-04-01 10:30 | XMS_ITS | Continuity of Care Document ---
Author Organization [facility] Address [address] [place] [address] Phone Care Team Providers Care Congressional Aide Name Role Phone Estela Gregory Unavailable Unavailable Procedures Procedure Date Eye Exam & Treatment Refraction Eye Exam & Treatment Progressive Lens, Polycarb Frames Deluxe Tint Plastic, Janay 1 Or 2 Tax - Medical Eye Exam & Treatment Advance Directives Directive Yes / No Effective Date File Name No Information Encounters Encounter Description Practice Location Reason(s) For Visit Diagnoses Date Provider Providers Copied on Encounter [facility], [address] [place] [address] [address], [place], [place], [id number], tel:[phone] [facility] No Information March-1 3-201 0 Bri Gómez [address] [facility] , [address], [place], [place], [facility], . tel:[phone] [facility], [address] [place] [address] [address], [place], [place], [id number], [place] tel:[phone] [facility] No Information March-0 8-200 8 Bri Gómez [address] [facility] , [address], [place], [address], [place]. tel:[phone] [facility], [address] [place] [address] [address], [place], [place], [id number], tel:[phone] [facility] No Information [address] [facility] [employer] . [address], [address], [place], [place], [id number], [place]. tel:[phone] Referring Provider: Cesar Loza, [address] [place] [address] [address], [place], [address]. [phone] sulting Provider: Gurinder Schwab, [address] [facility], [place], [address]. tel:[phone] [facility], [address] [facility] [address], [place], [place], [id number], [place] tel:[phone] [facility] No Information [address] Guerrero. [facility] [facility] , [address], [place], [address], [place]. tel:[phone] Family History Family Member Type Diagnosis Age At Onset No Information Payers Payer name Insurance type Covered green party ID Authoriza tion(s) No Information Social History Type Description Quantity Date Captured Comments Sex Female Smoking Status No Information Chief Complaint And Reason For Visit No Information Reason For Referral Reason For Referral No Information History Of Present Illness Encounter Date Complaint History Of Prese nt Illness No Information Functional Status Date Functional Assessmen t No Information Instructions Date Instruction Additional Infor mation No Information Assessments Type Assessment Date No Information Patient Care Teams Name Effective Dates (start - stop) Status Members No Information
--- OUTSIDE RECORDS SUMMARY | 2025-09-04 17:14 | XMS_ITS | Clinical Summary ---
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 N/A: Esophagus Wl [employer] [employer] [id number] 09/08/2022 [id number] / [id number] / Insurance MEDICARE [facility] INS [place] HUMANA CHOICE MEDICARE PPO CIGNA OPEN ACCESS Advance Directives For more information, please contact: [phone] * Full Code (Latest Code Status on File) Date Activated Date Inactivated Comments 02/07/2020 8:10 PM 02/09/2020 4:17 PM Care Teams Concrete Worker Relationship Specialty Start Date End Date Marielle James MD PCP - General Family Medicine 11/08/19
== END 2025-09-04 15:04 | disposition home or self-care (01) ==
LOC: ANHLAB 15:07
PROVIDERS: Visit Provider Obstetrics & Gynecology Gynecology
DX: E55.9 Vitamin D deficiency, unspecified (principal)
CPT/HCPCS: 36415; 82306

== ENCOUNTER 2025-09-10 14:35 | Outpatient (CLI) | payer MEDICARE, OTHER, SELFPAY ==
--- NOTE | ~2025-09-10 | DEXA_ITS ---
Bone Density Report Name: RAMONITA CUNHA Age: 75 Sex: Female Ethnicity: White Date of : 1950 Indication: postmenopausal osteoporosis; height loss; Referring Provider: GALLO VALDERRAMA Study: Bone densitometry was performed. Exam Date: September 10, 2025 Accession number: [id number] Bone Density: Region BMD T-score Z-score Classification AP Spine(L2, L3, L4) 0.843 -2.1 0.2 Osteopenia Femoral Neck (Left) 0.726 -1.1 0.9 Osteopenia Total Hip (Left) 0.869 -0.6 1.1 Normal Femoral Neck (Right) 0.756 -0.8 1.1 Normal Total Hip (Right) 0.793 -1.2 0.5 Osteopenia Total Hip Mean 0.831 -0.9 0.8 Normal World Health Organization criteria for BMD impression classify patients as: Normal (T-score at or above -1.0), Osteopenia (T-score between -1.0 and -2.5), or Osteoporosis (T-score at or below -2.5). 10-year Fracture Risk(1): Major Osteoporotic Fracture 9.3% Hip Fracture 1.3% Reported Risk Factors: [place] (), Neck BMD=0.726, BMI=31.4 (1) FRAX(R) Version 3.08. Fracture probability calculated for an untreated patient. Fracture probability may be lower if the patient has received treatment. Previous Exams: -- Region Exam Age BMD T-score BMD Change BMD Change Date g/cm2 vs Baseline vs Previous -- AP Spine (L2-L4) 09/10/2025 75 0.843 -2.1 -2.9%* 4.9%* 02/07/2022 71 0.804 -2.5 -7.4%* -6.8%* 03/18/2017 66 0.863 -2.0 -0.6% -2.7%* 03/10/2015 64 0.887 -1.7 2.2% 1.9% 02/11/2013 62 0.870 -1.9 0.3% 2.8%* 05/25/2009 58 0.846 -2.1 -2.5% -2.5% 03/12/2007 56 0.868 -1.9 Total Hip(Left) 09/10/2025 75 0.869 -0.6 8.9%* 11.4%* 02/07/2022 71 0.780 -1.3 -2.3% -4.3%* 03/18/2017 66 0.815 -1.0 2.1% -2.0% 03/10/2015 64 0.831 -0.9 4.2%* 3.1% 02/11/2013 62 0.806 -1.1 1.0% 5.2%* 05/25/2009 58 0.767 -1.4 -3.9%* -3.9%* 03/12/2007 56 0.798 -1.2 Total Hip(Right) 09/10/2025 75 0.793 -1.2 1.0% 6.0%* 02/07/2022 71 0.748 -1.6 -4.8%* -3.4% 03/18/2017 66 0.774 -1.4 -1.4% -3.3% 03/10/2015 64 0.801 -1.2 2.0% 0.9% 02/11/2013 62 0.794 -1.2 1.1% 4.4%* 05/25/2009 58 0.760 -1.5 -3.3% -3.3% 03/12/2007 56 0.785 -1.3 -- *Denotes significance at 95% confidence level, LSC for AP Spine = 0.022 g/cm2, LSC for Total Hip = 0.027 g/cm2 Rate of change results reflect vertebral levels common to all scans Clinical Information Provided by Patient: Has used the following medications: Reclast (i.e. zoledronate), Vitamin D, Calcium Patient maximum height was 63 Menopause Age: 46 No regular weight bearing exercise Does not regularly consume dairy products Drinks caffeinated beverages Onset of menses at age 16 Number of children 2 Impression: The patient has low bone mass, based on the Total Spine T-score. The patient has an estimated ten-year risk of hip fracture of 1.3% and an estimated ten-year risk of major fracture of 9.3%, based on the WHO FRAX algorithm. No significant bone loss was observed. Discussion: BONE DENSITY IS LOW AT ONE OR MORE SKELETAL SITES. This patient's lowest T-score is low at one or more skeletal sites. It meets the World Health Organization's (WHO) criteria for ?low bone mass? (T-score between -1.0 and -2.5). The patient's 10-year risk of fracture as calculated by FRAX is less than the threshold where pharmacological therapy is recommended by the National Osteoporosis Foundation (NOF). However, all treatment decisions require clinical judgment and consideration of individual patient factors, including patient preferences, comorbidities, previous drug use, risk factors not captured in the FRAX model (e.g., frailty, falls, vitamin D deficiency, increased bone turnover, interval significant decline in bone density) and possible under or overestimation of fracture risk by FRAX. The patient should follow a healthful lifestyle (good nutrition with adequate calcium and vitamin D, and appropriate weight-bearing exercise). Follow-Up: Consider repeating this study in 2 to 3 years to reassess this patient's status, or sooner if there is some new clinical indication. Reported by: VIBHA on 09/10/2025 2:57:00 PM. Reviewed, dictated and finalized at location A.
== END 2025-09-10 14:36 | disposition home or self-care (01) ==
LOC: MICIMG 14:36
PROVIDERS: Visit Provider Obstetrics & Gynecology Gynecology
DX: M85.89 Other specified disorders of bone density and structure, multiple sites (principal); Z78.0 Asymptomatic menopausal state; Z13.820 Encounter for screening for osteoporosis
CPT/HCPCS: 77080

== ENCOUNTER 2025-09-18 09:22 | Outpatient (CLI) | payer MEDICARE, OTHER, SELFPAY ==
--- NOTE | ~2025-09-18 | MM_ITS ---
EXAMINATION: MM screening caden BI w geoff HISTORY: Screening TECHNIQUE: Craniocaudal and mediolateral oblique 3-D tomosynthesis images were obtained and synthetic 2-D images were generated. CAD analysis was submitted and interpreted. COMPARISON: Comparison to multiple prior studies sequentially, with oldest reviewed study dated 10/16/2019. BREAST PARENCHYMAL COMPOSITION: Not dense: There are scattered areas of fibroglandular density. FINDINGS: There is an mass in the subareolar location of the right breast. The left breast is stable without evidence for malignancy. IMPRESSION: 1. Obscured subareolar right breast mass. 2. Additional mammographic views and possible breast ultrasound are recommended. BI-RADS Category 0: Incomplete: Needs additional imaging evaluation. Reviewed, dictated and finalized at location B. IMPRESSION: 1. Obscured subareolar right breast mass. 2. Additional mammographic views and possible breast ultrasound are recommended . BI-RADS Category 0: Incomplete: Needs additional imaging evaluation.
== END 2025-09-18 09:23 | disposition home or self-care (01) ==
LOC: MICIMG 09:23
PROVIDERS: Visit Provider Obstetrics & Gynecology Gynecology
DX: Z12.31 Encounter for screening mammogram for malignant neoplasm of breast (principal); N63.41 Unspecified lump in right breast, subareolar; R92.8 Other abnormal and inconclusive findings on diagnostic imaging of breast
CPT/HCPCS: 77063; 77067

== ENCOUNTER 2025-11-18 08:05 | Outpatient (CLI) | payer MEDICARE, OTHER, SELFPAY ==
--- NOTE | ~2025-11-18 | MM_ITS ---
CORRECTED REPORT attached US breast RT limited order to report [facility] 11/24/2025 This report was recreated on 11/24/2025. Original report was GENERAL MANAGER EXAMINATION: MM diagnostic caden RT w geoff HISTORY: Additional imaging TECHNIQUE: Craniocaudal and mediolateral oblique 3-D tomosynthesis images were obtained and synthetic 2-D images were generated. CAD analysis was submitted and interpreted. Grayscale sonography over the area(s) of interest with color Doppler if there is a finding. COMPARISON: September 18 BREAST PARENCHYMAL COMPOSITION: Dense: The breasts are heterogeneously dense, which may obscure small masses. MAMMOGRAM FINDINGS: A circumscribed mass persists in the retroareolar region. There are no suspicious calcifications. No unexplained architectural distortion is seen. There are no skin or nipple abnormalities identified. There is no adenopathy seen on the images submitted. ULTRASOUND FINDINGS: Sonography through the central position demonstrates the position of a circumscribed, homogeneous, hypoechoic mass with maximum dimension of 5 mm. This accounts for the mammographic structure. It has a benign appearance. IMPRESSION: No mammographic or sonographic evidence to suggest malignancy is seen. The patient may return to screening mammography as per ACR guidelines. BI-RADS 2 - Benign. Reviewed, dictated and finalized at location A. GENERAL MANAGER IMPRESSION: No mammographic or sonographic evidence to suggest malignancy is seen. The michael ent may return to screening mammography as per ACR guidelines. BI-RADS 2 - Benign.
== END 2025-11-18 08:06 | disposition home or self-care (01) ==
PROVIDERS: PCP Obstetrics & Gynecology Gynecology; Visit Provider Obstetrics & Gynecology Gynecology
DX: R92.8 Other abnormal and inconclusive findings on diagnostic imaging of breast (principal)
CPT/HCPCS: 76642; 77061; 77065; G0279